=== PATIENT | female | born 1970 | race Caucasian/White ===

== ENCOUNTER → 2023-07-27 08:15 | Outpatient (REF) | payer OTHER, SELFPAY | LOC: WDC 08:15 | PROVIDERS: ATTENDING PHYSICIAN Obstetrics & Gynecology; FAMILY PHYSICIAN Physician Assistant Medical | DX: Z12.31 Encounter for screening mammogram for malignant neoplasm of breast (principal) | CPT/HCPCS: 77063; 77067 ==

== ENCOUNTER → 2024-04-30 10:11 | Outpatient (REF) | payer OTHER, SELFPAY | LOC: RCS 10:11 | PROVIDERS: ATTENDING PHYSICIAN Internal Medicine Cardiovascular Disease; FAMILY PHYSICIAN Physician Assistant Medical; OTHER PHYSICIAN Internal Medicine Critical Care Medicine | DX: D86.9 Sarcoidosis, unspecified (principal); R06.09 Other forms of dyspnea; I35.1 Nonrheumatic aortic (valve) insufficiency | CPT/HCPCS: 93306 ==

== ENCOUNTER → 2024-06-06 11:16 | Outpatient (REF) | payer OTHER, SELFPAY | LOC: RAD 11:16 | PROVIDERS: ATTENDING PHYSICIAN Physician Assistant Medical; OTHER PHYSICIAN Internal Medicine Cardiovascular Disease; REFERRING PHYSICIAN Internal Medicine Critical Care Medicine | DX: M85.80 Other specified disorders of bone density and structure, unspecified site (principal) | CPT/HCPCS: 77080 ==

== ENCOUNTER → 2024-08-11 10:38 | Outpatient (REF) | payer OTHER, SELFPAY | LOC: WDC 10:38 | PROVIDERS: ATTENDING PHYSICIAN Obstetrics & Gynecology; FAMILY PHYSICIAN Physician Assistant Medical | DX: Z12.31 Encounter for screening mammogram for malignant neoplasm of breast (principal) | CPT/HCPCS: 77063; 77067 ==

== ENCOUNTER 2025-03-25 06:10 | Day surgery (SDC) | payer OTHER, SELFPAY | END 2025-03-25 08:25 | disposition home or self-care (01) | LOC: GI 06:10 | PROVIDERS: ATTENDING PHYSICIAN Internal Medicine | DX: Z12.11 Encounter for screening for malignant neoplasm of colon (principal); K63.5 Polyp of colon; D12.8 Benign neoplasm of rectum; Z86.0100 Personal history of colon polyps, unspecified | CPT/HCPCS: 45380; 88305 ==

== ENCOUNTER → 2025-04-06 15:02 | Outpatient (REF) | payer OTHER, SELFPAY | LOC: RAD 15:02 | PROVIDERS: ATTENDING PHYSICIAN Internal Medicine; FAMILY PHYSICIAN Physician Assistant Medical | DX: K63.9 Disease of intestine, unspecified (principal) | CPT/HCPCS: 74177; Q9967 ==

== ENCOUNTER 2025-05-06 06:17 | Day surgery (SDC) | payer OTHER, SELFPAY ==
[2025-04-27 09:10] LABS: Hematocrit 39.4 % (37.0-47.0); Hemoglobin 13.7 g/dL (12.0-16.0); Mean Corp Hgb Conc. 34.8 g/dL (33.0-37.0); Mean Corpuscular Volume 88.3 fL (81.0-99.0); Platelet Count 290 10^3/uL (130-400); Red Cell Dist. Width 11.6 % (11.5-14.5)
[2025-04-27 09:13] LABS: INR 1.04; PT 13.9 Sec (11.4-14.6)
[2025-04-27 09:14] LABS: APTT 31.1 Sec (23.4-35.0)
[2025-04-27 09:29] LABS: Glycohemoglobin (HgbA1c) 4.8 % (4.0-5.9)
[2025-04-27 09:32] LABS: ALT (SGPT) 22 U/L (0-35); AST (SGOT) 25 U/L (14-36); Albumin 4.2 g/dl (3.5-5.0); Alkaline Phosphatase 73 U/L (38-126); Blood Urea Nitrogen 18 mg/dl (7-17); Calcium 9.3 mg/dl (8.4-10.2); Carbon Dioxide 26 mmol/L (22-30); Chloride 102 mmol/L (98-107); Glucose 95 mg/dl (70-99); Potassium 4.2 mmol/L (3.5-5.1); Sodium 133 mmol/L (135-145); Total Protein 7.1 g/dl (6.3-8.2); eGFR > 60.00
[2025-04-27 13:56] VITALS: BMI 25.9
[2025-05-06] VITALS (9 sets, daily range): BP systolic 120–136; BP diastolic 76–87; BMI 25.9
[2025-05-06] MEDS: NORMOSOL-R/PLASMALYTE-A 1000 IV (12:53)
[2025-05-06] MEDS: LYRICA 150 MG PO (12:53)
[2025-05-06] MEDS: CELEBREX 200 MG PO (12:54)
[2025-05-06] MEDS: TYLENOL 1000 MG PO (12:54)
[2025-05-06] MEDS: HEPARIN 5000 UNITS SC (13:19)
[2025-05-06] MEDS: RELISTOR 12 MG SC (13:20)
--- NOTE | 2025-05-06 16:24 | W.IMMPOSTOP ---
Addendum entered and electronically signed by Chris Gilliam MD 05/06/25 16:50:
Updated via phone
Original Note:
Surgical Immed Post Op Note
-
Primary Surgeon: Chris Gilliam MD
Assisting Surgeon: DARYL Farris
Co.�surgeon: Maksim Webster MD
Pre-op Diagnosis: Cecal mass
Post-op Diagnosis: Cecal mass
Procedure Performed: Robotic appendectomy with partial cecectomy, intraoperative colonoscopy, lysis of adhesions, laparoscopic tap block
Anesthesia Type: General
Specimen / Cultures: Appendix with partial cecum
Estimated Blood Loss: 25 mL
IVF: 1 L
UOP: 100 mL
Complications: None
Operative Findings: Submucosal mass seen at the base of the appendix; Dr. Webster performed intraoperative colonoscopy and confirmed appropriate distance from the terminal ileum; stapled across the cecum with 60 mm blue load x 2; oozing of blood
noted from the staple line and controlled with [id number]-[id number] 2-0 Vicryl's; dilated 12 mm port slightly in order to remove specimen, closed with a 1 Vicryl interrupted stitch using a Krzysztof Francis device
[2025-05-06] MEDS: DILAUDID 0.25 MG IV ×3 (16:29→16:50)
--- NOTE | 2025-05-06 16:32 | OR.RPT ---
Operative Report
Operative Report
DATE OF OPERATION: 05/06/2025
SURGEON: Chris Gilliam MD
PREOPERATIVE DIAGNOSIS: Cecal mass
POSTOPERATIVE DIAGNOSIS: Cecal mass
OPERATION: Robotic appendectomy with partial cecectomy, intraoperative colonoscopy, lysis of adhesions, laparoscopic TAP block
ASSISTANTS:
1. DARYL Farris
CO�SURGEON:
1. Maksim Webster MD
ANESTHESIA: General
ESTIMATED BLOOD LOSS: 25 mL
FINDINGS:
1. 1.5 to 2 cm submucosal mass seen at the base of the appendix
2. On colonoscopy, visualized submucosal mass with plenty of distance between it and the terminal ileum
SPECIMENS:
1. Appendix with partial cecum
DRAINS: None
COMPLICATIONS: No immediate complications.
INDICATIONS: The patient is a 54-year-old female who was found to have a submucosal mass seen at the appendiceal orifice on screening colonoscopy. This was not endoscopically resectable. The biopsy came back as normal tissue. I explained the
options with regard to treatment. I offered appendectomy with partial cecectomy with the possibility of needing a segmental resection if there was not an adequate margin. The operation was discussed with the patient in detail, including the risks,
benefits and alternatives. Risks described included, but not limited to, bleeding, infection, damage to nearby structures (i.e., bowel, solid organ, bladder), need for more extensive resection than anticipated, recurrence, positive margin,
conversion to open, and anesthetic risks. The patient understood and agreed to proceed. The consent was signed and placed in the chart.
PROCEDURE IN DETAIL: The patient was taken to the operating room and placed on the operating table in supine position. Sequential compression devices were placed bilaterally. General anesthesia was induced and the patient was intubated without
complication. Bilateral arms were tucked. Vela catheter was placed with sterile technique. Anesthesia placed an orogastric tube. IV Ancef and Flagyl were given preincision. The abdomen was prepped and draped in a sterile fashion. A marking
pen was used to leatha out the midline. A time-out was performed verifying the correct patient, procedure, operative site, positioning, and special equipment.
At Rosen's point, a debora in the skin was made with an 11 blade scalpel. A Veress needle was used to obtain abdominal access. After 3 clicks, insufflation was initiated and the opening pressure was noted to be less than 8 mmHg. The abdomen was
insufflated to a pressure of 12, which the patient tolerated well. An 8 mm incision was made in the left mid/upper abdomen. An 8 mm robotic trocar was introduced and the robotic endoscope advanced. The abdomen was explored. There was no injury
from initial Veress or port placement. Two additional ports were placed under direct visualization at the suprapubic position, 2 fingerbreadths above the pubic symphysis, and in the left mid/lower abdomen along a diagonal. Care was taken to avoid
injury to the epigastric vessels and the bladder.
Using atraumatic graspers, the omentum was retracted above the transverse colon. The patient was placed in slight Trendelenburg with right side up. The appendix was elevated. There was a submucosal mass seen at the base of the appendix,
consistent with the mass seen on colonoscopy. There appeared to be a reasonable margin between it and the entrance of the terminal ileum. There were filmy adhesions from the terminal ileum to the right lower quadrant. The robot was docked. The
fenestrated bipolar and the robotic scissors were inserted. The filmy adhesions between the terminal ileum and the right lower quadrant were taken down, taking care to avoid injury to the bowel. The appendix was raised. There appeared to be a
reasonable margin, but to ensure no issues with narrowing of the entry of the terminal ileum, an intraoperative colonoscopy was performed by Dr. Webster. I created a window at the base of the appendix. I divided the mesoappendix with the LigaSure.
Hemostasis was ensured at the cut edge of the mesentery. Dr. Webster carefully advanced the colonoscope under direct visualization until arriving at the appendiceal orifice. The submucosal mass at the appendiceal orifice was easily visualized.
Using a tip up grasper, I visualized the anticipated staple line and there was plenty of space between the mass and the terminal ileum.
I upsized the left upper port to a 12 mm under direct visualization. I brought the 60 mm robotic stapler with a blue load across the cecum and ensured an adequate margin both visually and endoscopically. The stapler was closed and fired. There
was some bleeding noted at the medial aspect of the staple line, which was controlled with a few gdtqqi-hz-wqnpa 2-0 Vicryl's. An additional fire of the 60 mm robotic stapler was required. Hemostasis at the staple line was assured. The specimen
was placed in an endoscopic retrieval bag and placed to the side. There was no bubbling noted from the staple line. The colonoscope was withdrawn while suctioning out the CO2. The right lower quadrant and staple line were visualized once again
and remained hemostatic.
The robotic instruments were removed and the robot was undocked. The 12 mm port was removed. The port had to be slightly dilated with a Echo clamp in order to remove the specimen. The specimen was passed off for pathology. The port was closed
with a 1 Vicryl stitch using a suture passer under direct visualization. The operative field was evaluated once more and was hemostatic. The right lower quadrant was irrigated and suctioned. A laparoscopic TAP block was performed. A total of 30
mL of 0.25% Marcaine with epinephrine mixed with 0.3 mg of Decadron was injected in the transversus abdominis plane bilaterally in 3 locations. The operative field was assessed once more and remained hemostatic. The left mid/lower port was removed
under direct visualization and no bleeding was noted. The suprapubic port and camera were removed. The abdomen was allowed to collapse. The incisions were injected with an additional of 30 mL of 0.25% Marcaine with epinephrine and 0.3 mg of
dexamethasone. The skin of the ports were closed with 4-0 Monocryl in subcuticular fashion. Dermabond was used for dressing.
At this point, the procedure was complete. The patient was awoken and extubated without complication. The vela was removed. All needle, sponge and instrument counts were reported as correct. The patient tolerated the procedure well and was
transferred to the recovery room in stable condition.
DICTATED BY: Chris Gilliam MD
[2025-05-06] MEDS: ZOFRAN 4 MG IV (18:09)
== END 2025-05-06 19:00 | disposition home or self-care (01) ==
LOC: SDS 06:17
PROVIDERS: ATTENDING PHYSICIAN Surgery; FAMILY PHYSICIAN Physician Assistant Medical; OTHER PHYSICIAN Internal Medicine Cardiovascular Disease; OTHER PHYSICIAN Internal Medicine Critical Care Medicine
DX: K35.890 Other acute appendicitis without perforation or gangrene (principal); K63.9 Disease of intestine, unspecified
CPT/HCPCS: 44970; 71046; 80053; 83036; 85027; 85610; 85730; 86850; 86900; 86901; 88307; 93005